=== PATIENT | male | born 1955 | race Caucasian/White ===

== ENCOUNTER → 2018-02-13 10:21 | Outpatient (CLI) | payer OTHER, SELFPAY ==
--- NOTE | 2018-02-13 | DI.ECHO.S_ITS ---
[place] +---------+ [facility] +---------+ : : [address] : : : : [id number] : : : : Phone: [phone]---------+ Echocardiogram Report + + :Name: PETTY PINEDA Study Date: 02/13/2018 Height: 71 in : :[facility] Weight: 221 lb: : Gender: Male BSA: 2.2 m2 : :: 1955 Age: 62 yrs : :Reason For Study: : :Ordering Physician: Clayton : :Jens Performed By: Rose Saleh : :Referring: CLAYTON SUMMERS : + + Interpretation Summary The left ventricle is normal in size. Left ventricular wall thickness is borderline increased. The ejection fraction is estimated to be 60-65%. Left ventricular wall motion is normal. The right ventricle is normal in size and function. The left atrium is mildly dilated. The aortic valve is moderately calcified. Leaflet mobility is moderately reduced. The calculated aortic valve area is 1.2 cm2. Compared to the prior echo study, there has been an increase in the severity of aortic stenosis. Procedure: A two-dimensional transthoracic echocardiogram with color flow and Doppler was performed. The study quality was technically adequate. Comparison is made with the echocardiogram of 06/20/2016. The heart rate ranged between 57-65 bpm during the study. Left Ventricle: The left ventricle is normal in size. Left ventricular wall thickness is borderline increased. The ejection fraction is estimated to be 60-65%. Left ventricular wall motion is normal. Right Ventricle: The right ventricle is normal in size and function. Atria: The left atrium is mildly dilated. Right atrial size is normal. There is no Doppler evidence for an interatrial shunt. Mitral Valve: The mitral valve is normal in structure and function. There is trace mitral regurgitation. Aortic Valve: The aortic valve is moderately calcified. Leaflet mobility is moderately reduced. The peak aortic velocity is 3.4 m/sec. The peak aortic velocity on the previous exam was 2.8 m/sec. The aortic valve mean gradient is 27 mmHg. The calculated aortic valve area is 1.2 cm2. Compared to the prior echo study, there has been an increase in the severity of aortic stenosis. No aortic regurgitation is present. Tricuspid Valve: The tricuspid valve is normal in structure and function. There is a trace or physiologic amount of tricuspid regurgitation. Pulmonary artery pressures cannot be estimated because of the lack of a measurable TR jet velocity. Pulmonic Valve: The pulmonic valve is not well seen, but is grossly normal. There is a trace or physiologic amount of pulmonic regurgitation. Great Vessels: The aortic root is normal size. The ascending aorta could not be visualized. The aortic arch could not be visualized. The pulmonary artery is not well visualized, but is probably normal size. The IVC is of normal diameter and collapses greater than 50% with a sniff. This suggests a low right atrial pressure of 3 mm Hg. Pericardium/ Pleura There is no pericardial effusion. There is no pleural effusion. MMode/2D Measurements & Calculations LVIDd: 5.4 cm LVOT diam: 2.2 cm LVIDs: 3.5 cm Ao root diam: 3.3 cm FS: 35.3 % IVSd: 0.86 cm LVPWd: 1.1 cm LV mares. diameter/BSA (cm/m^2): 2.5 LV sys. diameter/BSA (cm/m^2): 1.6 LA A2 area: 25.9 cm2 RA long axis: 5.1 cm LA A4 area: 25.3 cm2 RA area: 20.1 cm2 LA length (vol): 6.0 cm RA vol: 67.4 ml LA vol: 92.1 ml RA : 30.7 ml/m2 LA vol index: 41.8 ml/m2 IVC diam: 2.0 cm RVD1 (basal): 4.0 cm TAPSE: 2.5 cm Doppler Measurements & Calculations Ao V2 max: 333.8 cm/sec LVOT Max Rievr: 111.2 cm/sec Ao V2 mean: 253.6 cm/sec LV V1 max P.9 mmHg Ao max P.6 mmHg LV V1 VTI: 24.4 cm Ao mean P.1 mmHg GRETCHEN(I,D): 1.2 cm2 Ao V2 VTI: 77.4 cm GRETCHEN(V,D): 1.2 cm2 sev ratio: 0.32 GRETCHEN indexed to BSA (cm^2/m^2): 0.54 MV E max river: 72.6 cm/sec MV A max river: 66.6 cm/sec MV E/A: 1.1 Med Peak E' River: 6.8 cm/sec E/E' med: 10.6 Lat Peak E' River: 7.2 cm/sec E/E' lat: 10.1 E/e' average: 10.4 MV dec time: 0.20 sec Reading Physician:02:48 PM
== END ==
PROVIDERS: Family Provider Family Medicine; Visit Provider Internal Medicine Cardiovascular Disease
DX: I35.0 Nonrheumatic aortic (valve) stenosis (principal)
CPT/HCPCS: 93306

== ENCOUNTER → 2019-04-30 14:32 | Outpatient (CLI) | payer OTHER, SELFPAY ==
--- NOTE | 2019-05-02 09:06 | DI.NM.S_ITS ---
DATE OF SERVICE: 04/30/2019 PROCEDURE: Exercise perfusion study. INDICATIONS: Chest pain with known history of coronary artery disease, status post ST-elevation inferior wall PR in December 2016, status post RC stent with underlying hypertension, hyperlipidemia, diabetes mellitus. RADIOPHARMACEUTICAL: 25.5 mCi technetium-99m Myoview IV was injected at stress and 25.6 mCi technetium-99m Myoview IV was injected at rest. CARDIAC STRESS: The patient underwent an exercise perfusion study under the supervision of an attending staff. He walked on Dajuan protocol for 9 minutes and 04 seconds, achieved 93% of target heart rate and hypertensive blood pressure response. Baseline blood pressure 140/60. Peak blood pressure 210/60. The patient achieved 10.1 METs of workload and functional aerobic impairment of -11%. Baseline EKG revealed sinus rhythm, small Q-waves in the inferior leads. During stress, there was some nonspecific upsloping ST depression in leads V4 to V6 with very quick recovery. There were no significant arrhythmias. No chest pain or angina symptoms. RAW DATA: There appears to be increased subdiaphragmatic activity. The patient's weight is 231 pounds. GATED STUDY: Resting LV ejection fraction 67% and stress LV ejection fraction 63% without any obvious wall motion abnormalities. Resting end-diastolic volume 157 mL. No transient ischemic dilatation. TID ratio 0.92, which is within normal. Lung/heart ratio 0.31, which is within normal limits. MYOCARDIAL PERFUSION: Stress supine, resting supine, and stress prone images were compared to each other. It appears to be that the patient has predominantly fixed, small sized, mildly decreased perfusion of the inferior wall and inferior apex, consistent with old inferior wall myocardial infarction without any significant reversible ischemia. CONCLUSION: This is an abnormal myocardial perfusion study with evidence of small infarction of the inferior wall and inferior apex without any significant reversible ischemia. Good exercise tolerance. The patient walked on Dajuan protocol for 9 minutes and 04 seconds with hypertensive blood pressure response. No significant arrhythmias or anginal symptoms during stress. Overall, this is a low-risk myocardial perfusion study. Yony Blanco - MARICHUY/hosea/ts doc#: [id number]/job#: [id number] dd: 05/01/2019 16:22:00 dt: 05/02/2019 08:50:00 DICTATING MD/COPIES TO: Cristiane Madera MD COPIES MNE: TUYET
== END ==
PROVIDERS: Family Provider Family Medicine; PCP Family Medicine; Visit Provider Hospitalist
DX: R94.39 Abnormal result of other cardiovascular function study (principal); R07.9 Chest pain, unspecified; I25.10 Atherosclerotic heart disease of native coronary artery without angina pectoris; I25.2 Old myocardial infarction; E11.9 Type 2 diabetes mellitus without complications; I10 Essential (primary) hypertension; E78.5 Hyperlipidemia, unspecified; Z95.5 Presence of coronary angioplasty implant and graft
CPT/HCPCS: 78452; 93016; 93017; 93018; A9502

== ENCOUNTER → 2019-11-16 09:31 | Outpatient (CLI) | payer OTHER, SELFPAY ==
--- NOTE | 2019-11-16 | DI.MRI.S_ITS ---
PROCEDURE: MR KNEE RT WO CON INDICATIONS: PAIN IN RIGHT KNEE TECHNIQUE: Noncontrast sagittal PD fast spin echo and T2 fast spin echo with fat saturation, sagittal 3-D FLASH with fat saturation; coronal T1 spin echo and PD fast spin echo with fat saturation, and axial PD fast spin echo with fat saturation through the knee. COMPARISON: None. FINDINGS: Image quality: Excellent. Menisci: The medial and lateral menisci demonstrate normal morphology and internal signal. The meniscal root ligaments appear intact. Cruciate ligaments: There is sprain/low-grade partial-thickness tear involving anterior cruciate ligament near its femoral insertion. No full-thickness ACL rupture. PCL is intact. Medial structures: The medial collateral ligament appears intact. The posterior oblique ligament, semimembranosus tendon insertions, oblique popliteal ligament, and meniscocapsular junction appear intact. Visualized portions of the pes anserinus tendons appear normal. No abnormal bursal fluid. Lateral structures: The lateral collateral ligament, long and short heads of the biceps femoris tendon appear intact. The popliteus tendon appears normal; the popliteofibular ligament appears intact. The posterosuperior and anteroinferior popliteomeniscal fascicles appear intact. The arcuate and fabellofibular ligaments appear intact, on either side of the lateral inferior geniculate artery. Iliotibial band appears normal. Anterior structures: The quadriceps and patellar tendons appear intact. Patellar alignment is normal. No femoral trochlear dysplasia or ventral trochlear prominence. No edema in the infrapatellar fat pad. Bones and cartilage: There is no fracture or dislocation. Low to moderate grade tricompartmental osteoarthritis and chondromalacia is seen most prominent involving lateral portion of patellofemoral compartment with underlying posterior lateral patella subcortical edema and cyst formation. Joint space: There is small amount of joint fluid. No Hagen's cyst. Normal appearing synovial plicae are incidentally noted. IMPRESSION: 1. 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 2. No fracture or dislocation. Small amount of joint fluid. 3. No evidence of focal meniscal tear. 4. Sprain/low-grade intrasubstance partial-thickness tear involving proximal to mid anterior cruciate ligament. No full-thickness ACL rupture. PCL is intact. Dictated by: German Campbell M.D. on 11/16/2019 at 11:46 Approved by: German Campbell M.D. on 11/16/2019 at 12:00
== END ==
PROVIDERS: Family Provider Family Medicine; PCP Family Medicine; Referring Provider Orthopaedic Surgery; Visit Provider Orthopaedic Surgery
DX: M25.561 Pain in right knee (principal); S83.511A Sprain of anterior cruciate ligament of right knee, initial encounter; M19.011 Primary osteoarthritis, right shoulder; M22.41 Chondromalacia patellae, right knee
CPT/HCPCS: 73721

== ENCOUNTER → 2021-08-15 09:15 | Outpatient (CLI) | payer MEDICARE, OTHER, SELFPAY ==
--- NOTE | 2021-08-15 | DI.ECHO.S_ITS ---
[place] +---------+ [facility] +---------+ : : [address] : [address] : : : : [id number] : : : : Phone: [phone]---------+ Echocardiogram Report + + :Name: PETTY PINEDA Study Date: 08/15/2021 Height: 70.5 in: :[facility] ReadingLocation: Weight: 229 lb : : Gender: Male BSA: 2.2 m2 : :: 1955 Age: 66 yrs BP: 147/63 mmHg: :Reason For Study: AORTIC STENOSIS : :Ordering Physician: ROXANA, : :KATERINE Performed By: Yary Coe : :Referring: KATERINE WILLS : + + Interpretation Summary 1) Normal left ventricular size, wall motion, and systolic function (EF 60- 65%). 2) Mildly enlarged right ventricle with normal function. 3) There is severe aortic stenosis (valve area 0.8cm2, mean gradient 45mm Hg, severity ratio 0.26). 4) Compared to the Echo done 06/06/2020, mean gradient across the aortic valve has increased to the severe range. Procedure: A two-dimensional transthoracic echocardiogram with color flow and Doppler was performed. The study quality was technically adequate. Comparison is made with the echocardiogram of 06/06/2020. The patient was in sinus rhythm with heart rates between 55-67 bpm during the exam. Left Ventricle: The left ventricle is normal in size. There is mild concentric left ventricular hypertrophy. The ejection fraction is estimated to be 60-65%. Left ventricular systolic function appears normal without focal wall motion abnormalities. Diastolic parameters suggest a pseudonormalization pattern, consistent with probable elevated filling pressures. Right Ventricle: The right ventricle is mildly dilated. The right ventricular systolic function is normal. Atria: The left atrium is moderately dilated. Right atrial size is normal. There is no Doppler evidence for an interatrial shunt. Mitral Valve: There is mild to moderate mitral annular calcification. The mitral valve leaflets appear borderline thickened, but open well. There is mild mitral regurgitation. Aortic Valve: The aortic valve is severely calcified. The peak aortic velocity is 4.4 m/sec. The aortic valve mean gradient is 45 mmHg. The calculated aortic valve area is 0.77 cm2. There is severe aortic stenosis. There is mild aortic regurgitation. Tricuspid Valve: The tricuspid valve is normal in structure and function. There is trace tricuspid regurgitation. Pulmonary artery pressures cannot be estimated because of the lack of a measurable TR jet velocity but the IVC suggests a CVP of around 8 mmHg. Pulmonic Valve: The pulmonic valve leaflets are thin and pliable; valve motion is normal. There is trace pulmonic regurgitation. Great Vessels: The aortic root is normal size. The dimensions of the ascending aorta are normal. The IVC is dilated (diameter is greater than 2.1 cm) yet it collapses greater than 50% with a sniff. This suggests a right atrial pressure of 8 mm Hg. Pericardium/ Pleura There is no pericardial effusion. There is no pleural effusion. MMode/2D Measurements & Calculations LVIDd: 5.5 cm LVOT diam: 2.0 cm LVIDs: 3.4 cm Ao root diam: 3.0 cm FS: 39.6 % asc Aorta Diam: 3.0 cm IVSd: 1.1 cm Ao Arch Diam (Prox Trans): 2.1 cm LVPWd: 1.3 cm LV mares. diameter/BSA (cm/m^2): 2.5 LV sys. diameter/BSA (cm/m^2): 1.5 LA A2 area: 25.8 cm2 RA long axis: 5.7 cm LA A4 area: 26.5 cm2 RA area: 20.1 cm2 LA length (vol): 5.9 cm RA vol: 60.6 ml LA vol: 98.2 ml RA : 27.3 ml/m2 LA vol index: 44.2 ml/m2 IVC diam: 2.5 cm RVD1 (basal): 4.4 cm RVD2 (mid): 3.7 cm TAPSE: 2.5 cm Doppler Measurements & Calculations Ao V2 max: 437.6 cm/sec LVOT Max River: 102.3 cm/sec Ao V2 mean: 305.5 cm/sec LV V1 max P.2 mmHg Ao max P.5 mmHg LV V1 VTI: 25.6 cm Ao mean P.2 mmHg GRETCHEN(I,D): 0.84 cm2 Ao V2 VTI: 99.8 cm GRETCHEN(V,D): 0.77 cm2 sev ratio: 0.26 GRETCHEN indexed to BSA (cm^2/m^2): 0.38 MV E max river: 83.5 cm/sec PA V2 max: 118.1 cm/sec MV A max river: 48.0 cm/sec PA V2 mean: 78.9 cm/sec MV E/A: 1.7 PA mean P.9 mmHg Med Peak E' River: 6.3 cm/sec PA pr(Accel): 13.9 mmHg E/E' med: 13.2 Lat Peak E' River: 6.6 cm/sec E/E' lat: 12.6 E/e' average: 12.9 MV dec time: 0.30 sec SV(LVOT): 84.0 ml Reading Physician:12:28 PM
== END ==
PROVIDERS: Family Provider Family Medicine; PCP Family Medicine; Referring Provider Internal Medicine Cardiovascular Disease; Visit Provider Internal Medicine Cardiovascular Disease
DX: I08.0 Rheumatic disorders of both mitral and aortic valves (principal)
CPT/HCPCS: 93306

== ENCOUNTER → 2021-08-24 10:35 | Outpatient (CLI) | payer MEDICARE, OTHER, SELFPAY ==
[2021-08-24 11:19] LABS: Add Manual Diff / Slide Review NO; Basophils Absolute Auto 0 /uL (0-100); Basophils Percent Auto 0.7 % (0-2); Eosinophils Absolute Auto 100 /uL (0-450); Eosinophils Percent Auto 1.9 % (2-4); Hemoglobin 14.4 g/dL (13.5-17.5); Lymphocytes Absolute Auto 1300 /uL (1100-4500); Lymphocytes Percent Auto 19.3 % (25-40); Mean Corpuscular HGB Conc 33.4 % (30-36); Mean Corpuscular Volume 86.7 fL (80-100); Monocytes Absolute Auto 600 /uL (0-900); Monocytes Percent Auto 8.8 % (3-14); Neutrophils Absolute Auto 4700 /uL (1500-7000); Neutrophils Percent Auto 69.3 % (50-75); Platelet Count 187 X10^3/uL (150-400); Red Blood Cell Count 4.96 X10^6/uL (4.5-5.9); Red Cell Distribution Width 13.9 % (11.6-14.8); White Blood Cell Count 6.7 X10^3/uL (4.5-11.0)
[2021-08-24 11:37] LABS: BUN Creatinine Ratio 28.8 (6-22); Blood Urea Nitrogen 19 mg/dL (9-20); Calcium 8.8 mg/dL (8.4-10.2); Carbon Dioxide 29 mmol/L (22-32); Chloride 103 mmol/L (98-107); Cholesterol 108 mg/dL (140-199); Estimated Glomerular Filt Rate > 60 mL/min (>60); Glucose 195 mg/dL (80-110); HDL Cholesterol 39 mg/dL (40-60); HEMOLYSIS < 15 (0-50); LDL Cholesterol Calculated 54 mg/dL (<100); Potassium 4.2 mmol/L (3.4-5.1); Sodium 139 mmol/L (137-145); Triglycerides 74 mg/dL (35-150)
== END ==
PROVIDERS: Family Provider Family Medicine; PCP Family Medicine; Referring Provider Internal Medicine Cardiovascular Disease; Visit Provider Internal Medicine Cardiovascular Disease
DX: E78.5 Hyperlipidemia, unspecified (principal); I25.10 Atherosclerotic heart disease of native coronary artery without angina pectoris
CPT/HCPCS: 36415; 80048; 80061; 85025

== ENCOUNTER 2021-11-02 06:57 | Emergency (ER) | payer MEDICARE, OTHER, SELFPAY ==
[2021-11-02] VITALS (11 sets, daily range): BP systolic 134–180; BP diastolic 64–81; PULSE 58–75; RESP 6–23; O2SAT 96–100; BMI 33.3
--- NOTE | 2021-11-02 07:05 | DI.RAD.S_ITS ---
PROCEDURE: XR CHEST 1V INDICATIONS: chest pain TECHNIQUE: One view of the chest was acquired. COMPARISON: [facility], , CHEST 1 VIEW, 09/13/2010, 18:37. FINDINGS: Surgical changes and devices: None. Lungs and pleura: Lungs are clear. No pleural effusions or pneumothorax. Mediastinum: Mediastinal contours appear normal. Heart size is normal. Bones and chest wall: No suspicious bony lesions. Overlying soft tissues appear unremarkable. IMPRESSION: No acute pulmonary process. Dictated by: Vivi Carballo M.D. on 11/02/2021 at 7:46 Approved by: Vivi Carballo M.D. on 11/02/2021 at 7:46
[2021-11-02 07:19] LABS: Add Manual Diff / Slide Review NO; Basophils Absolute Auto 100 /uL (0-100); Basophils Percent Auto 0.7 % (0-2); Eosinophils Absolute Auto 100 /uL (0-450); Eosinophils Percent Auto 1.8 % (2-4); Hematocrit 40.8 % (41-53); Hemoglobin 13.9 g/dL (13.5-17.5); Lymphocytes Absolute Auto 1300 /uL (1100-4500); Lymphocytes Percent Auto 16.8 % (25-40); Mean Corpuscular Hemoglobin 29.1 PG (26-34); Mean Corpuscular Volume 85.7 fL (80-100); Monocytes Absolute Auto 800 /uL (0-900); Monocytes Percent Auto 9.7 % (3-14); Neutrophils Absolute Auto 5700 /uL (1500-7000); Platelet Count 178 X10^3/uL (150-400); Red Blood Cell Count 4.76 X10^6/uL (4.5-5.9); Red Cell Distribution Width 13.6 % (11.6-14.8)
[2021-11-02 07:34] LABS: Alanine Aminotransferase 43 IU/L (<50); Albumin 4.1 g/dL (3.5-5.0); Albumin Globulin Ratio 1.3 (1.0-2.8); Alkaline Phosphatase 69 U/L (38-126); Aspartate Aminotransferase 56 IU/L (17-59); Bilirubin Total 1.5 mg/dL (0.2-1.3); Blood Urea Nitrogen 18 mg/dL (9-20); Calcium 8.4 mg/dL (8.4-10.2); Carbon Dioxide 27 mmol/L (22-32); Chloride 104 mmol/L (98-107); Creatine Kinase 252 U/L (55-170); Estimated Glomerular Filt Rate > 60 mL/min (>60); Globulin 3.2 g/dL (1.7-4.1); Glucose 185 mg/dL (80-110); Lipase 83 U/L (23-300); Magnesium 1.9 mg/dL (1.6-2.3); Potassium 4.6 mmol/L (3.4-5.1); Sodium 137 mmol/L (137-145); Total Protein 7.3 g/dL (6.3-8.2)
[2021-11-02 07:35] LABS: HEMOLYSIS 166 (0-50)
--- NOTE | 2021-11-02 07:45 | ED.CHESTPAIN ---
HPI - Chest Pain General Chief Complaint: Chest Pain Stated Complaint: ANGINA Time Seen by Provider: 11/02/21 07:16 Source: patient Mode of arrival: Ambulatory History of Present Illness HPI narrative: Patient is a 66-year-old male history of insulin-dependent diabetes hyperlipidemia hypertension who recently had a TAVAR at [facility] for aortic stenosis 2 weeks ago presents today with chest discomfort. He says that he walks 1 hour every day after his procedure. He has been doing that and been doing very well. After his walk today he went to lay down he had a squeezing sensation in the center of his chest it went up to the left side and lasted her about 5 minutes. It went away he has no shortness of breath he has no nausea no diaphoresis. This has never happened to him he has no known coronary artery disease, but because of his recent procedure he wanted to be checked out Related Data Home Medications Medication Instructions Recorded Confirmed LEVOTHYROXINE SODIUM (Synthroid) 200 mcg PO Q AM ##0 09/02/09 atorvastatin 80 mg tablet 80 mg PO HS #0 tabs 02/06/16 felodipine 5 mg tablet,extended 5 mg PO BID ##0 02/06/16 release 24 hr hydrochlorothiazide 25 mg tablet 25 mg PO QDAY #0 tabs 02/06/16 insulin lispro 100 unit/mL 0 u SQ #0 vials 02/06/16 subcutaneous solution (Humalog U-100 Insulin) losartan 100 mg tablet 100 mg PO QDAY #30 tabs 02/06/16 aspirin 81 mg tablet,delayed 81 mg PO DAILY 11/24/17 11/24/17 release (Adult Aspirin Regimen) atorvastatin 40 mg tablet 40 mg PO DAILY 11/24/17 11/24/17 coenzyme Q10 100 mg capsule 200 mg PO DAILY 11/24/17 11/24/17 (CoQ-10) ezetimibe 10 mg tablet (Zetia) 10 mg PO DAILY 11/24/17 11/24/17 felodipine 5 mg tablet,extended 5 mg PO DAILY 11/24/17 11/24/17 release 24 hr hydrochlorothiazide 25 mg tablet 25 mg PO DAILY 11/24/17 11/24/17 levothyroxine 175 mcg tablet 175 mcg PO DAILY 11/24/17 11/24/17 (Synthroid) losartan 100 mg tablet 100 mg PO DAILY 11/24/17 11/24/17 ticagrelor 90 mg tablet (Brilinta) 90 mg PO BID 11/24/17 11/24/17 Allergies Allergy/AdvReac Type Severity Reaction Status Date / Time Penicillins [PENICILLINS] Allergy Unknown Unverified 05/18/21 07:10 Review of Systems Review of Systems Narrative: GENERAL: Denies chills, fatigue, malaise, fever, sweats, travel HEENT: Denies sinus pain, ear pain, sore throat, difficulty swallowing, neck pain RESPIRATORY: Denies dyspnea, cough, wheezing, hemoptysis, sputum. CARDIOVASCULAR: See HPI GASTROINTESTINAL: Denies nausea, vomiting, abdominal pain, diarrhea, constipation, melena. : Denies dysuria, frequency, incontinence, hematuria, urinary retention, flank pain. MUSCULOSKELETAL: Denies weakness, joint pain, or bony pain SKIN: No rash, no erythema, no pruritus NEUROLOGIC: Denies weakness, dizziness, headache, numbness, change in speech, confusion PSYCHIATRIC: No concerning psychosocial issues. 12 point review of systems is negative except for those stated above and HPI Patient History Social History Smoking Status: Never smoker alcohol intake: never Smoking Status: Never smoker Exam Initial Vital Signs Initial Vital Signs: Vital Signs Pulse Rate 75 11/02/21 07:06 Respiratory Rate 18 11/02/21 07:06 Blood Pressure 180/81 H 11/02/21 07:06 Pulse Oximetry 96 11/02/21 07:06 Oxygen Delivery Method 11/02/21 07:06 GENERAL: Alert pleasant 66-year-old male and in no acute distress. HEENT: Head atraumatic,EOMI, pupils reactive, face symmetric, moist mucous membranes CARDIOVASCULAR: Regular rate and rhythm without murmurs, rubs or gallops. RESPIRATORY: Breath sounds equal bilaterally, no wheezes rales or rhonchi. ABDOMEN: Soft, nontender. Normoactive bowel sounds all 4 quadrants. No guarding or rebound. EXTREMITIES: Normal range of motion, no clubbing or edema. Neurovascularly intact NEUROLOGICAL: Alert and oriented x4.Normal gait and speech. SKIN: Warm, dry, no laceration, no petechiae, no rashes or lesions. Course Orders Ordered: ED Orders 11/02/21 07:05 XR chest 1V Stat EKG-12 Lead Stat 11/02/21 07:16 Complete Blood Count AUTO DIFF Stat Comprehensive Metabolic Panel Stat Lipase Stat Magnesium Stat Troponin & CK Cardiac Panel Stat 11/02/21 09:15 Trop I [Troponin I] Stat Vital Signs Vital signs: Vital Signs - 8 hr 11/02/21 07:06 11/02/21 07:11 11/02/21 07:15 Pulse Rate 75 66 Respiratory Rate 18 18 Blood Pressure 180/81 H 145/65 H Pulse Oximetry 96 96 Oxygen Delivery Method Room Air 11/02/21 07:15 11/02/21 07:30 11/02/21 07:30 Pulse Rate 66 63 Respiratory Rate 17 16 Blood Pressure 134/64 Pulse Oximetry 96 96 Oxygen Delivery Method 11/02/21 08:00 11/02/21 08:00 11/02/21 08:31 Pulse Rate 64 71 Respiratory Rate 16 Blood Pressure 147/67 H Pulse Oximetry 96 97 Oxygen Delivery Method 11/02/21 09:00 11/02/21 09:30 11/02/21 10:00 Pulse Rate 61 58 L 59 L Respiratory Rate 15 6 L 14 Blood Pressure Pulse Oximetry 97 100 98 Oxygen Delivery Method 11/02/21 10:36 11/02/21 10:37 11/02/21 10:37 Pulse Rate 61 59 L Respiratory Rate 23 17 Blood Pressure 164/74 H Pulse Oximetry 98 99 Oxygen Delivery Method MDM - Chest Pain Lab Data Result diagrams: 11/02/21 07:16 11/02/21 07:16 Labs: Lab Results 11/02/21 11/02/21 11/02/21 Range/Units 07:16 07:16 09:15 WBC 8.0 (4.5-11.0) X10^3/uL RBC 4.76 (4.5-5.9) X10^6/uL Hgb 13.9 (13.5-17.5) g/dL Hct 40.8 L (41-53) % MCV 85.7 (80-100) fL MCH 29.1 (26-34) PG MCHC 34.0 (30-36) % RDW 13.6 (11.6-14.8) % Plt Count 178 (150-400) X10^3/uL Neut % (Auto) 71.0 (50-75) % Lymph % (Auto) 16.8 L (25-40) % Nye % (Auto) 9.7 (3-14) % Eos % (Auto) 1.8 L (2-4) % Baso % (Auto) 0.7 (0-2) % Neut # (Auto) 5700 (6046-2087) /uL Lymph # (Auto) 1300 (8997-3400) /uL Nye # (Auto) 800 (0-900) /uL Eos # (Auto) 100 (0-450) /uL Baso # (Auto) 100 (0-100) /uL Sodium 137 (137-145) mmol/L Potassium 4.6 (3.4-5.1) mmol/L Chloride 104 (98-107) mmol/L Carbon Dioxide 27 (22-32) mmol/L BUN 18 (9-20) mg/dL Creatinine 0.60 L (0.66-1.25) mg/dL Estimated GFR > 60 (>60) mL/min BUN/Creatinine Ratio 30.0 H (6-22) Glucose 185 H (80-110) mg/dL Calcium 8.4 (8.4-10.2) mg/dL Magnesium 1.9 (1.6-2.3) mg/dL Total Bilirubin 1.5 H (0.2-1.3) mg/dL AST 56 (17-59) IU/L ALT 43 (<50) IU/L Alkaline Phosphatase 69 (38-126) U/L Total Creatine Kinase 252 H (55-170) U/L CK-MB (CK-2) 4.23 H (<2.37) ng/mL CK-MB (CK-2) Rel Index 1.7 (1.5-5.0) % Troponin I 0.016 < 0.012 (0.01-0.034) ng/mL Total Protein 7.3 (6.3-8.2) g/dL Albumin 4.1 (3.5-5.0) g/dL Globulin 3.2 (1.7-4.1) g/dL Albumin/Globulin Ratio 1.3 (1.0-2.8) Lipase 83 (23-300) U/L Imaging Data Chest x-ray: Radiologist's Impression: [address] [address] XRay Report Signed Patient: Yony Blanco MR#: [id number] : 1955 Acct:[id number] Age/Sex: 66 / M Date of Service: 11/02/21 Loc: ED Accession Number: [id number] ?? Procedure: XR chest 1V Ordering Provider: Sara Degroot D.O. PROCEDURE:? XR CHEST 1V ? INDICATIONS:? chest pain ? TECHNIQUE:? One view of the chest was acquired.? ? COMPARISON:? [facility], , CHEST 1 VIEW, 09/13/2010, 18:37. ? FINDINGS:? ? Surgical changes and devices:? None.? ? Lungs and pleura:? Lungs are clear.? No pleural effusions or pneumothorax.? ? Mediastinum:? Mediastinal contours appear normal.? Heart size is normal.? ? Bones and chest wall:? No suspicious bony lesions.? Overlying soft tissues appear unremarkable.? ? IMPRESSION:? No acute pulmonary process. ? ? Dictated by: Vivi Carballo M.D. on 11/02/2021 at 7:46 ? ? Approved by: Vivi Carballo M.D. on 11/02/2021 at 7:46 ? 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 Unsuccessful. Patient is no longer having any chest discomfort. 2- troponins normal EKGs. 1033-Dr. Madera updated patient's symptoms test results. States patient should have had left heart catheterization prior to his surgery. Attempt to get records. He states there should be no complication from surgery [facility] cardiac catheterization records have been received and reviewed. Patient in fact did have a cardiac catheterization 09/11/2021. He was noted to have a 40-50% stenosis ofostial RV branch, it was thought that this was not significant and patient was cleared for surgery Patient remains asymptomatic. Unlikely is to have acute coronary syndrome or cardiac disease with recent is a cardiac catheterization and TAVR. Discussed results with patient. He actually says he has appointment with his solar field installation crew member Dr. Wills in a couple of weeks and has a scheduled echocardiogram. Discharge Plan Departure Patient Disposition: Home Clinical Impression: Atypical chest pain Instructions: DI for Atypical Chest Pain Activity Restrictions/Additional Instructions: *You have been diagnosed with atypical chest pain *What to do: At this time blood work is overall reassuring. He recently had a test in August which was also reassuring. Please follow-up with your solar field installation crew member Dr. Wills, and your surgeon *Continue to take medications as directed *Follow up with your primary care provider in 2-3 days or call [phone] *Return to ER if you should have increasing chest pain, shortness of breath, or any new, worsening or concerning symptoms Prescriptions: No Action atorvastatin 40 mg tablet 40 mg PO DAILY levothyroxine [Synthroid] 175 mcg tablet 175 mcg PO DAILY felodipine 5 mg tablet extended release 24 hr 5 mg PO DAILY aspirin [Adult Aspirin Regimen] 81 mg tablet,delayed release (DR/EC) 81 mg PO DAILY hydrochlorothiazide 25 mg tablet 25 mg PO DAILY losartan 100 mg tablet 100 mg PO DAILY ezetimibe [Zetia] 10 mg tablet 10 mg PO DAILY coenzyme Q10 [CoQ-10] 100 mg capsule 200 mg PO DAILY ticagrelor [Brilinta] 90 mg tablet 90 mg PO BID LEVOTHYROXINE SODIUM (Synthroid) 200 mcg PO Q AM Qty: 0 atorvastatin 80 MG tablet 80 mg PO HS Qty: 0 felodipine 5 MG tablet extended release 24 hr 5 mg PO BID Qty: 0 hydrochlorothiazide 25 MG tablet 25 mg PO QDAY Qty: 0 losartan 100 MG tablet 100 mg PO QDAY Qty: 30 insulin lispro [Humalog U-100 Insulin] 100 UNIT/1 ML solution 0 u SQ Qty: 0 Referrals: Graeme Jean MD [Primary Care Provider] - Ximena Wills MD [Physician] - Visit Report Forms: Patient Portal/API
[2021-11-02 07:46] LABS: Troponin I 0.016 ng/mL (0.01-0.034)
[2021-11-02 07:49] LABS: CKMB % Relative Index 1.7 % (1.5-5.0); Creatine Kinase MB 4.23 ng/mL (<2.37)
[2021-11-02 09:43] LABS: Troponin I < 0.012 ng/mL (0.01-0.034)
== END 2021-11-02 11:39 | disposition home or self-care (01) ==
PROVIDERS: Emergency Provider Emergency Medicine; Family Provider Family Medicine; PCP Family Medicine
DX: R07.89 Other chest pain (principal)
CPT/HCPCS: 36415; 71045; 80053; 82550; 82553; 83690; 83735; 84484; 85025; 93005; 93010; 99283; 99284

== ENCOUNTER 2021-12-21 08:30 | Outpatient (RCR) | payer MEDICARE, OTHER, SELFPAY | END 2021-12-21 12:30 | LOC: CAR 08:30 | PROVIDERS: Family Provider Family Medicine; PCP Family Medicine; Referring Provider Specialist; Visit Provider Specialist | DX: Z95.3 Presence of xenogenic heart valve (principal) | CPT/HCPCS: 93798 ==

== ENCOUNTER → 2022-10-18 06:50 | Outpatient (CLI) | payer MEDICARE, OTHER, SELFPAY ==
--- NOTE | 2022-10-18 | DI.ECHO.S_ITS ---
[place] [facility]---------+ [facility] +---------+ : : [address] : : : : [id number] : : : : Phone: [phone]+ Echocardiogram Report + + :Name: PETTY PINEDA Study Date: 10/18/2022 Height: 71 in : :[facility] ReadingLocation: Weight: 235 lb : : Gender: Male BSA: 2.3 m2 : :: 1955 Age: 67 yrs BP: 138/65 mmHg: :Reason For Study: PROSTHETIC HEART VALVE : :Ordering Physician: ROXANA, : :KATERINE Performed By: Yary Coe : :Referring: KATERINE WILLS : + + Interpretation Summary 1) Normal left ventricular size, wall motion, and systolic function (EF 60- 65%). 2) Normal right ventricular size and function. 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 There is mild perivalvular regurgitation around the prosthetic aortic valve. 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 Procedure: A two-dimensional transthoracic echocardiogram with color flow and Doppler was performed. The study quality was technically adequate. Comparison is made with the echocardiogram of 11/17/2021. The patient was in sinus bradycardia with heart rates between 56-62 bpm during the exam. Left Ventricle: The left ventricle is normal in size. There is mild concentric left ventricular hypertrophy. The ejection fraction is estimated to be 60-65%. Left ventricular systolic function appears normal without focal wall motion abnormalities. Right Ventricle: The right ventricle is normal in size and function. Atria: The left atrium is mildly dilated. Right atrial size is normal. There is no Doppler evidence for an interatrial shunt. Mitral Valve: The mitral valve leaflets appear mildly thickened, but open well. There is mild to moderate mitral annular calcification. There is trace mitral regurgitation. Aortic Valve: There is a bioprosthetic aortic valve. There is mild perivalvular regurgitation around the prosthetic aortic valve. The peak aortic velocity is 3.2 m/sec. The aortic valve mean gradient is 24 mmHg. Tricuspid Valve: The tricuspid valve is normal in structure and function. There is trace tricuspid regurgitation. Pulmonary artery pressures cannot be estimated because of the lack of a measurable TR jet velocity. Great Vessels: The aortic root is not well visualized but is probably normal size. The dimensions of the ascending aorta are normal. The IVC is of normal diameter and collapses greater than 50% with a sniff. This suggests a low right atrial pressure of 3 mm Hg. Pericardium/ Pleura There is no pericardial effusion. There is no pleural effusion. MMode/2D Measurements & Calculations LVIDd: 5.5 cm LVOT diam: 2.1 cm LVIDs: 3.7 cm asc Aorta Diam: 3.3 cm FS: 32.9 % EPSS: 0.87 cm IVSd: 1.1 cm LVPWd: 1.3 cm LV mares. diameter/BSA (cm/m^2): 2.4 LV sys. diameter/BSA (cm/m^2): 1.6 LA A2 area: 22.6 cm2 RA long axis: 5.6 cm LA A4 area: 23.9 cm2 RA area: 19.4 cm2 LA length (vol): 6.0 cm RA vol: 57.5 ml LA vol: 76.7 ml RA : 25.5 ml/m2 LA vol index: 33.9 ml/m2 IVC diam: 1.5 cm RVD1 (basal): 4.2 cm RVD2 (mid): 3.2 cm TAPSE: 2.5 cm Doppler Measurements & Calculations Ao V2 max: 319.4 cm/sec MV E max river: 81.2 cm/sec Ao V2 mean: 229.2 cm/sec MV A max river: 50.4 cm/sec Ao max P.8 mmHg MV E/A: 1.6 Ao mean P.5 mmHg Med Peak E' River: 6.4 cm/sec Ao V2 VTI: 68.0 cm E/E' med: 12.7 Lat [place] E' [place]: 7.9 cm/sec E/E' lat: 10.2 E/e' average: 11.4 MV dec time: 0.25 sec PA V2 max: 85.8 cm/sec PA V2 mean: 57.7 cm/sec PA mean P.5 mmHg PA pr(Accel): 17.3 mmHg Reading Physician:12:03 PM
== END ==
PROVIDERS: Family Provider Family Medicine; PCP Family Medicine; Referring Provider Internal Medicine Cardiovascular Disease; Visit Provider Internal Medicine Cardiovascular Disease
DX: I34.81 Nonrheumatic mitral (valve) annulus calcification (principal); I35.1 Nonrheumatic aortic (valve) insufficiency; Z95.2 Presence of prosthetic heart valve
CPT/HCPCS: 93306

== ENCOUNTER → 2024-04-15 07:35 | Outpatient (CLI) | payer MEDICARE, OTHER, SELFPAY ==
--- NOTE | 2024-04-15 07:39 | DI.RAD.S_ITS ---
PROCEDURE: XR CHEST 2V INDICATIONS: fever TECHNIQUE: 2 views of the chest were acquired. COMPARISON: [facility], , XR CHEST 1V, 11/02/2021, 7:21. FINDINGS: Surgical changes and devices: None. Lungs and pleura: Right lower lung field opacity. No pleural effusions or pneumothorax. Mediastinum: Mediastinal contours are normal. Heart size is normal. Bones and chest wall: No suspicious bony abnormalities. Soft tissues appear unremarkable. IMPRESSION: Right lower lung field opacity concerning for pneumonia. Recommend follow-up radiographs after treatment to ensure resolution. Dictated by: Juan Johnson M.D. on 04/15/2024 at 13:28 Approved by: Juan Johnson M.D. on 04/15/2024 at 13:29
== END ==
PROVIDERS: Family Provider Family Medicine; Referring Provider Nurse Practitioner Family; Visit Provider Nurse Practitioner Family
DX: R50.9 Fever, unspecified (principal)
CPT/HCPCS: 71046